=== PATIENT | male | born 1930 | race Caucasian/White ===

== ENCOUNTER → 2019-05-12 | Outpatient (CLI) | payer MEDICARE, OTHER ==
[~2019-05-12] MED LIST: ASCO1ER PO; ASPI325 PO; CYAN1000 PO; GLUC500 PO; LYSINE; OMEP20ER PO; TOCO400 PO
== END | disposition home or self-care (01) ==
LOC: LAB SHORT 15:20 → PLD 15:20
DX: C44.319 Basal cell carcinoma of skin of other parts of face (principal)
CPT/HCPCS: 88305